=== PATIENT | female | born 1980 | race Caucasian/White ===

== ENCOUNTER 2024-02-15 17:31 | Day surgery (SDC) | payer OTHER, SELFPAY ==
[2024-02-15] VITALS (13 sets, daily range): BP systolic 142–188; BP diastolic 84–128; PULSE 62–103; RESP 16–22; TEMP 36.6; O2SAT 80–100; BMI 30.7
--- NOTE | 2024-02-15 18:21 | CRLHL7_ITS ---
For Patients: As a result of the Cures Act, medical imaging exams and procedure reports are released immediately into your electronic medical record. You may view this report before your referring provider. If you have questions, please contact your health care provider. INDICATION: Right upper quadrant pain. COMPARISON: None. TECHNIQUE: Real time barton scale imaging and color Doppler analysis was performed of the right upper quadrant. FINDINGS: Liver: The liver is normal in size measuring 16.5 cm in length. Normal echogenicity. No focal liver lesions identified. Gallbladder: The gallbladder is distended with a large 5.3 cm shadowing stone in the neck. The remainder of the gallbladder is filled with sludge. Mild wall thickening. No significant pericholecystic fluid. Positive sonographic Sahu sign. Bile ducts: The common bile duct measures 6 mm in diameter. Pancreas: Normal where seen. Right kidney: The right kidney measures 13.4 cm in length. No hydronephrosis, calculus, or mass. Vascular: Normal caliber proximal abdominal aorta. IMPRESSION: 1. Hydropic gallbladder filled with sludge and a large stone in the gallbladder neck. Mild gallbladder wall thickening and tenderness over the gallbladder fossa. Findings are suspicious for acute cholecystitis. 2. Common bile duct upper limits of normal. Dictated by Jessica Durbin MD @ 02/15/2024 7:30:38 PM (Electronically Signed)
--- NOTE | 2024-02-15 18:24 | ED_ITS ---
HPI - General Adult General Chief complaint: Abdominal Pain Stated complaint: Abdominal/chest pain Time Seen by Provider: 02/15/24 18:03 Source: patient Mode of arrival: ambulatory Limitations: no limitations History of Present Illness HPI narrative: 43-year-old female coming in today complaining of abdominal pain going on for about 5 days. Pain is located in the epigastric region but radiates across the entire upper abdomen at times when it gets bad. She does notice that sometimes it gets worse after she eats greasy foods, otherwise it is present despite what she eats. She can take ibuprofen and it does get better but is never gone for more than an hour or 2 at a time. She states that she has vomited on more than 1 occasion when the pain gets bad enough. She denies any fevers or chills. She denies any urinary symptoms, no diarrhea or constipation. She states that the pain sometimes radiates up into her chest. Patient takes no medications, history of . Related Data Home Medications ?Medication ?Instructions ?Recorded ?Confirmed No Known Home Medications 02/15/24 02/15/24 Allergies Allergy/AdvReac Type Severity Reaction Status Date / Time No Known Drug Allergies Allergy Verified 02/15/24 18:11 Review of Systems Status of ROS: Reports: 10 or more systems reviewed and unremarkable except as noted in History and below Exam Narrative: Exam Narrative: Well-nourished well-developed patient, patient is uncomfortable and tearful. Alert and oriented. Answers questions appropriately. Thoughts are goal oriented and rational. No tangential or magical thinking noted. Patient speaks in full sentences without needing to catch her breath. HEENT: Normocephalic atraumatic. Pupils are equally round reactive to light. Extraocular muscles are intact. Conjunctivae are moist without any icterus noted. Moist mucous membranes. Posterior pharynx is normal. Neck is soft without any lymphadenopathy or thyromegaly. No masses are appreciated. Cardiovascular: Heart is regular rate and rhythm S1 and S2 are present without any murmurs. Lungs: Clear to auscultation bilaterally no wheezes rhonchi or rales are appreciated. Patient takes deep breaths without any discomfort. Abdomen: Soft and nondistended with normal bowel sounds. Patient has epigastric tenderness and right upper quadrant tenderness, negative Sahu sign. Extremities: Bilateral lower extremities are without edema. Normal DP and PT pulses. Skin: Well perfused without any obvious rashes. Const: Vital Signs, click to edit/add: Vital Signs - 24 hr 02/15/24 18:06 Temperature 97.8 F Pulse Rate [Pulse Oximeter] 76 Respiratory Rate 22 Blood Pressure [Ri ght Upper Arm] 149/88 H Pulse Oximetry 96 Oxygen Delivery Me thod Room Air Course Course ED Course: EKG, read by me, shows sinus arrhythmia with a pulse of 70. CBC is unremarkable. Chemistries are unremarkable. LFTs are unremarkable. Normal troponin. CRP is elevated at 2.9. Lipase is normal. Patient is given IV morphine. Which does help her pain however relief only lasts about an hour and half. This is followed up with oral hydrocodone. L of normal saline is also started and patient is given IV use Zofran as well. Ultrasound shows an extremely large gallstone stuck in the neck of the gallbladder with concerns for cholecystitis. Discussed case with who recommends hospitalization antibiotic treatment surgery in the morning given the current time of the night. IV Zosyn started in the ED. Vital Signs Vital signs: Initial Vital Signs Temperature 97.8 F 02/15/24 18:06 Temperature Source Temporal Artery Scan 02/15/24 18:06 Pulse Rate 76 02/15/24 18:06 Respiratory Rate 22 02/15/24 18:06 Blood Pressure 149/88 H 02/15/24 18:06 Blood Pressure Mean 108 H 02/15/24 18:06 Blood Pressure Position Sitting 02/15/24 18:06 Pulse Oximetry 96 02/15/24 18:06 Oxygen Delivery Method Room Air 02/15/24 18:06 Vital Signs Temperature 97.8 F 02/15/24 18:06 Pulse Rate 76 02/15/24 18:06 Respiratory Rate 22 02/15/24 18:06 Blood Pressure 149/88 H 02/15/24 18:06 Pulse Oximetry 96 02/15/24 18:06 Oxygen Delivery Method Room Air 02/15/24 18:06 Temperature 97.8 F 02/15/24 18:06 Pulse Rate 76 02/15/24 18:06 Respiratory Rate 22 02/15/24 18:06 Blood Pressure 149/88 H 02/15/24 18:06 Pulse Oximetry 96 02/15/24 18:06 Oxygen Delivery Method Room Air 02/15/24 18:06 Medications Administered Medications: Generic Name Dose Route Start Last Admin Trade Name Ashish PRN Reason Stop Dose Admin Hydrocodone Bitart/Acetaminophen 2 tab 02/15/24 19:50 02/15/24 20:06 Hydrocodone-Acetamin 5-325 Mg 1 Tab PO 02/15/24 19:51 2 tab ONCE ONE Administration Discontinued Medications Generic Name Dose Route Start Last Admin Trade Name Ashish PRN Reason Stop Dose Admin Sodium Chloride 1,000 mls @ 1,000 mls/hr 02/15/24 18:30 02/15/24 19:20 0.9 % Sodium Chloride 1000 Ml IV 02/15/24 19:29 1,000 mls/hr .Q1H LASHA Administration Morphine Sulfate 2 mg 02/15/24 18:21 02/15/24 18:54 Morphine 2 Mg/Ml Inj IVP 02/15/24 18:22 2 mg ONCE ONE Administration Ondansetron HCl 4 mg 02/15/24 18:21 02/15/24 18:54 Ondansetron 2 Mg/Ml Inj IVP 02/15/24 18:22 4 mg ONCE ONE Administration Medical Decision Making MDM Narrative Medical decision making narrative: 43-year-old female with a large gallstone and probable cholecystitis. Plan per above. Lab Data Lab results reviewed: Yes I reviewed the patient's lab results Labs: Lab Results 02/15/24 Range/Units 18:45 WBC 8.84 (4.50-11.00) K/uL RBC 5.51 H (4.00-5.20) m/uL Hgb 15.6 (12.0-16.0) gm/dL Hct 45.1 (33.0-51.0) % MCV 82 (80-100) fL MCH 28 (26-34) pg MCHC 35 (32-36) gm/dL RDW Coeff of Lilly 12.0 (11.5-15.5) % Plt Count 269 (140-440) K/uL Neut % (Auto) 74.0 H (42.0-72.0) % Lymph % (Auto) 16.4 L (20-44) % [place] % (Auto) 8.7 (0.0-11.0) % Eos % (Auto) 0.7 (0.0-7.0) % Baso % (Auto) 0.1 (0.0-3.0) % Neut # (Auto) 6.50 (1.7-7.0) K/uL Lymph # (Auto) 1.40 (0.90-2.90) K/uL [place] # (Auto) 0.80 (0.00-0.90) K/UL Eos # (Auto) 0.06 (0.00-0.50) K/uL Baso # (Auto) 0.01 (0.00-0.30) K/uL Abs Immat Gran (auto) 0.01 (0.00-0.30) K/uL Imm/Tot Granulo (auto) 0.1 % ESR 13 (2-20) mm/hr Sodium 139 (135-149) mmol/L Potassium 3.9 (3.6-5.1) mmol/L Chloride 108 (96-114) mmol/L Carbon Dioxide 24 (20-32) mmol/L Anion Gap 7 (7-15) mEq/L BUN 11 (5-24) mg/dL Creatinine 0.6 (0.5-1.5) mg/dL Estimated Creat Clear 112.01 Estimated GFR 113 ml/min Glucose 118 H (60-115) mg/dL Lactate 1.2 (0.5-1.9) mmol/L Calcium 10.0 (8.4-10.6) mg/dL Total Bilirubin 1.2 (0.1-1.5) mg/dL Direct Bilirubin 0.3 (0.0-0.5) mg/dL AST 18 (12-35) U/L ALT 13 (4-35) U/L Alkaline Phosphatase 102 (40-150) U/L Troponin I < 0.01 L (0.01-0.04) ng/mL C-Reactive Protein 2.9 H (0.5-1.0) mg/dL Total Protein 7.5 (6.0-8.3) g/dL Albumin 4.5 (3.3-5.0) g/dL Lipase 28 (23-300) U/L Imaging Data US - abdomen: Attestation: I have reviewed the pertinent imaging results. Radiologist's impression: TECHNIQUE: Real time barton scale imaging and color Doppler analysis was performed of the right upper quadrant. FINDINGS: Liver: The liver is normal in size measuring 16.5 cm in length. Normal echogenicity. No focal liver lesions identified. Gallbladder: The gallbladder is distended with a large 5.3 cm shadowing stone in the neck. The remainder of the gallbladder is filled with sludge. Mild wall thickening. No significant pericholecystic fluid. Positive sonographic Sahu sign. Bile ducts: The common bile duct measures 6 mm in diameter. Pancreas: Normal where seen. Right kidney: The right kidney measures 13.4 cm in length. No hydronephrosis, calculus, or mass. Vascular: Normal caliber proximal abdominal aorta. IMPRESSION: 1. Hydropic gallbladder filled with sludge and a large stone in the gallbladder neck. Mild gallbladder wall thickening and tenderness over the gallbladder fossa. Findings are suspicious for acute cholecystitis. 2. Common bile duct upper limits of normal. ECG Data Attestation: I personally reviewed and interpreted this ECG as follows: Discharge Plan Discharge Clinical Impression: Cholelithiasis, Acute cholecystitis Patient Disposition: Admitted As Observation Condition: Stable Prescriptions: No Action No Known Home Medications Follow Up/Referrals: Provider,Not a Local [Primary Care Provider] -
[2024-02-15] MEDS: MORPHINE 2 MG/ML inj IVP (18:54)
[2024-02-15] MEDS: ONDANSETRON 2 MG/ML inj 4 MG IVP ×2 (18:54→23:11)
[2024-02-15 18:55] LABS: Basophils Absolute Auto 0.01 K/uL (0.00-0.30); Basophils Percent Auto 0.1 % (0.0-3.0); Eosinophils Absolute Auto 0.06 K/uL (0.00-0.50); Eosinophils Percent Auto 0.7 % (0.0-7.0); Hematocrit 45.1 % (33.0-51.0); Hemoglobin* 15.6 gm/dL (12.0-16.0); Immature Granulocytes Abs Auto 0.01 K/uL (0.00-0.30); Immature Granulocytes Pct Auto 0.1 %; Lactate* 1.2 mmol/L (0.5-1.9); Lymphocytes Percent Auto 16.4 % (20-44); Mean Corpuscular HGB Conc 35 gm/dL (32-36); Mean Corpuscular Hemoglobin 28 pg (26-34); Mean Corpuscular Volume 82 fL (80-100); Monocytes Percent Auto 8.7 % (0.0-11.0); Platelet Count* 269 K/uL (140-440); Red Blood Count 5.51 m/uL (4.00-5.20); White Blood Count* 8.84 K/uL (4.50-11.00)
[2024-02-15 18:57] LABS: Slide Review Reflex No
[2024-02-15 19:15] LABS: Albumin* 4.5 g/dL (3.3-5.0); Chloride* 108 mmol/L (96-114); Sodium* 139 mmol/L (135-149)
[2024-02-15 19:16] LABS: Potassium* 3.9 mmol/L (3.6-5.1)
[2024-02-15 19:17] LABS: Creatinine* 0.6 mg/dL (0.5-1.5); Est. Creatinine Clearance* 112.01; Estimated Glomerular Filt Rate 113 ml/min
[2024-02-15 19:18] LABS: Alkaline Phosphatase* 102 U/L (40-150); Anion Gap 7 mEq/L (7-15); Aspartate Amino Transferase* 18 U/L (12-35); Bilirubin Direct* 0.3 mg/dL (0.0-0.5); Bilirubin Total* 1.2 mg/dL (0.1-1.5); Blood Urea Nitrogen* 11 mg/dL (5-24); Carbon Dioxide* 24 mmol/L (20-32); Total Protein* 7.5 g/dL (6.0-8.3)
[2024-02-15 19:19] LABS: Alanine Aminotransferase* 13 U/L (4-35); Glucose* 118 mg/dL (60-115); Lipase* 28 U/L (23-300)
[2024-02-15] MEDS: 0.9 % SODIUM CHLORIDE 1000 ml 1,000 ML IV (19:20)
[2024-02-15 19:21] LABS: C Reactive Protein* 2.9 mg/dL (0.5-1.0)
[2024-02-15 19:30] LABS: Troponin I* < 0.01 ng/mL (0.01-0.04)
[2024-02-15 19:49] LABS: Erythrocyte SedimentationRate* 13 mm/hr (2-20)
[2024-02-15] MEDS: HYDROCODONE-ACETAMIN 5-325 MG 1 TAB 2 TAB PO (20:06)
[2024-02-15] MEDS: PIPERACILLIN/TAZOBACTAM 3.375 GM in 0.9 % SODIUM CHLORIDE Mini-bag 100 ML IVPB (20:18)
[2024-02-15] MEDS: HYDROmorphone 0.5 mg/0.5 ml inj 1 MG IVP (20:57)
[2024-02-15] MEDS: SODIUM CHLORIDE 0.9 % (FLUSH) 10 ML SYRINGE 5 ML IVF ×2 (21:58→23:11)
[2024-02-15] MEDS: 0.9 % SODIUM CHLORIDE 500 ML 500 ML IV (21:58)
[2024-02-15] MEDS: 0.9 % SODIUM CHLORIDE 1000 ml 1,000 ML 125 ML IV (21:59)
[2024-02-15] MEDS: KETOROLAC 30 MG/ML inj IVP (22:07)
--- NOTE | 2024-02-15 23:08 | PM.IMHP1 ---
Hospitalist- H&P: HPI History of Present Illness Date Seen: 02/15/24 Chief complaint: Abdominal/chest pain Narrative: Chela Murillo is a 43 year old woman presents to the emergency department today for assessment of abdominal pain that has been worsening slowly over the course of the past 5 days. Pain for the most part is epigastric but at times radiates across the abdomen into her back. Initially it seemed that the pain would get worse when she consumed foods rich in fat but more recently the pain occurs when she eats anything. She has tried acetaminophen to relieve pain without any relief. She has tried ibuprofen for pain relief which helped for a while but more recently has not helped at all. She has taken ibuprofen as much as 8 of the [id number] 200 mg tabs at a time. Has had intermittent nausea and vomiting as well. Has had little to eat or drink over the last 2-3 days. The last day or 2 she has only been able to sip fluids and not able to consume anything solid. Denies fevers, rigors, diaphoresis. Denies dysuria, urgency, frequency, hematuria. Denies diarrhea or constipation. Denies blood loss of any sort. Review of Systems Status of ROS: Reports: 6 or more systems reviewed and unremarkable except as noted in History and below Narrative: Does not consume alcoholic beverages. History of smoking in the past. No longer smokes. Does acknowledge that she vapes periodically. [facility] Surgical History History of section ?Z98.891 - History of uterine scar from previous surgery (ICD-10) Meds Home Medications and Allergies Home Medications ?Medication ?Instructions ?Recorded ?Confirmed ?Type No Known Home Medications 02/15/24 02/15/24 History Home Medication Comments: Acetaminophen and ibuprofen p.r.n. for pain over the last few days Allergies Allergy/AdvReac Type Severity Reaction Status Date / Time No Known Drug Allergies Allergy Verified 02/15/24 18:11 Exam Narrative: Exam Narrative: I 1st examined her in the hospital emergency department. In the emergency department she is diaphoretic and fidgety and unable to get in a comfortable position. Alert and oriented x4. Cooperative and friendly. External auditory canals are clear and tympanic membranes are normal. Midline nasal septum. Dry buccal mucosa. Dentition in fair repair. Conjugate gaze. No icterus. No conjunctival injection. Pupils equally round and reactive to light and accommodation. Neck is supple. Midline trachea. No head neck lymphadenopathy. Lungs are clear to auscultation without wheezing, rhonchi, or rales. Chest wall excursions are full. No CVA tenderness. Heart tones with regular rhythm, normal S1-S2, without murmur, gallop, or rub. Abdomen is distended. Occasional intermittent bowel sounds. Tender to touch. No rebound. Extremities without edema. Capillary refill less than 3 seconds. Moves all 4 extremities. No focal motor neurologic deficits. Cranial nerves 3-12 grossly normal. Independent in transfer, station, and gait. After the patient receives additional analgesics she appears much more comfortable and is no longer diaphoretic. Const: Vital Signs, click to edit/add: Vital Signs - 24 hr 02/15/24 18:06 02/15/24 19:53 02/15/24 20:00 Temperature 97.8 F Pulse Rate 77 103 H Pulse Rate [Pulse Oximeter] 76 Respiratory Rate 22 Blood Pressure Blood Pressure [Ri ght Upper Arm] 149/88 H Pulse Oximetry 96 98 [facility] 02/15/24 20:08 02/15/24 20:16 02/15/24 20:25 Temperature Pulse Rate 83 62 82 Pulse Rate [Pulse Oximeter] Respiratory Rate 16 Blood Pressure 142/128 H 188/115 H Blood Pressure [Ri ght Upper Arm] Pulse Oximetry 98 80 L [facility] 02/15/24 20:26 02/15/24 20:30 02/15/24 20:45 Temperature Pulse Rate 84 89 88 Pulse Rate [Pulse Oximeter] Respiratory Rate 16 Blood Pressure 186/106 H Blood Pressure [Ri ght Upper Arm] Pulse Oximetry 100 100 97 [facility] 02/15/24 21:00 02/15/24 21:02 Temperature Pulse Rate 68 86 Pulse Rate [Pulse Oximeter] Respiratory Rate 16 Blood Pressure 149/93 H Blood Pressure [Ri ght Upper Arm] Pulse Oximetry 100 100 [facility] - H&P: Result Labs Labs: Short CBC 02/15/24 Range/Units 18:45 WBC 8.84 (4.50-11.00) K/uL Hgb 15.6 (12.0-16.0) gm/dL Hct 45.1 (33.0-51.0) % Plt Count 269 (140-440) K/uL BMP 02/15/24 18:45 Sodium 139 Potassium 3.9 Chloride 108 Carbon Dioxide 24 BUN 11 Creatinine 0.6 Glucose 118 H Calcium 10.0 Cardiac Enzymes 02/15/24 Range/Units 18:45 Troponin I < 0.01 L (0.01-0.04) ng/mL Liver Function 02/15/24 Range/Units 18:45 Total Bilirubin 1.2 (0.1-1.5) mg/dL Direct Bilirubin 0.3 (0.0-0.5) mg/dL AST 18 (12-35) U/L ALT 13 (4-35) U/L Alkaline Phosphatase 102 (40-150) U/L Albumin 4.5 (3.3-5.0) g/dL ECG Attestation: I personally reviewed and interpreted this ECG as follows: ECG interpretation date: 02/15/24 Interpretation: Normal sinus rhythm with occasional atrial premature complexes. No evidence of ischemia or infarct. Imaging US - abdomen: Radiologist's impression: 1. Hydropic gallbladder filled with sludge and a large stone in the gallbladder neck. Mild gallbladder wall thickening and tenderness over the gallbladder fossa. Findings are suspicious for acute cholecystitis. 2. Common bile duct upper limits of normal. Assessment and Plan Assessment and plan (1) Acute cholecystitis: Status: Acute (2) Cholelithiasis: Status: Acute Plan - general surgeon, Dr. Dunn, will see the patient in consultation. For now we will initiate IV piperacillin and tazobactam, analgesia and antiemetics, NPO, IV fluids. - reviewed impression and recommendations with patient and she is agreeable. - answered patient's questions to her satisfaction. Total Time Spent Total Time Spent: 60 min
[2024-02-16] VITALS (25 sets, daily range): BP systolic 125–170; BP diastolic 67–106; PULSE 78–119; RESP 16–29; TEMP 36.4–37.5; O2SAT 18–98
[2024-02-16 00:19] LABS: Appearance Urine Clear (Clear); Bilirubin Urine Negative (Negative); Blood Urine 1+ (Negative); Color Urine Yellow (Yellow); Glucose Urine Negative (Negative); Ketones Urine 2+ (Negative); Leukocyte Esterase Urine 1+ (Negative); Nitrite Urine Negative (Negative); Protein Urine 1+ (Negative); Urobilinogen Urine 0.2 (0.2-1.0); pH Urine 5.5 (5.0-8.5)
[2024-02-16 00:25] LABS: Ur HCG Qualitative* Negative (Negative)
[2024-02-16 00:30] LABS: Bacteria Urine Few; RBC Urine 0-2 (0-2); Squamous Epithelial Cell Urine Few (None-Few); WBC Urine 0-2 (0-5)
[2024-02-16] MEDS: HYDROmorphone 0.5 mg/0.5 ml inj 1 MG IVP ×6 (02:01→09:55)
[2024-02-16] MEDS: PIPERACILLIN/TAZOBACTAM 3.375 GM in 0.9 % SODIUM CHLORIDE Mini-bag 100 ML IVPB ×2 (02:02→07:30)
[2024-02-16] MEDS: ONDANSETRON 2 MG/ML inj 4 MG IVP ×2 (03:38→07:42)
[2024-02-16] MEDS: KETOROLAC 30 MG/ML inj IVP (03:57)
--- NOTE | 2024-02-16 06:45 | PC.NURSE ---
Pt alert and oriented x3. Afebrile. Pt reports 2-9/10 epigastric pain that radiates to back, pain managed with PRN medications. Pt reports intermittent nausea and pt had several episodes of emesis 3-10ml after Dilaudid administration, PRN Zofran given with some relief. Pt is up Ind in room, voiding and has been tolerating an NPO diet since 210902/15/24. ?
[2024-02-16 06:59] LABS: Basophils Absolute Auto 0.02 K/uL (0.00-0.30); Basophils Percent Auto 0.3 % (0.0-3.0); Eosinophils Absolute Auto 0.04 K/uL (0.00-0.50); Eosinophils Percent Auto 0.5 % (0.0-7.0); Hematocrit 40.1 % (33.0-51.0); Hemoglobin* 13.5 gm/dL (12.0-16.0); Immature Granulocytes Abs Auto 0.02 K/uL (0.00-0.30); Immature Granulocytes Pct Auto 0.3 %; Lymphocytes Percent Auto 12.5 % (20-44); Mean Corpuscular HGB Conc 34 gm/dL (32-36); Mean Corpuscular Hemoglobin 29 pg (26-34); Mean Corpuscular Volume 85 fL (80-100); Monocytes Percent Auto 6.6 % (0.0-11.0); Neutrophils Percent Auto 79.8 % (42.0-72.0); Platelet Count* 233 K/uL (140-440); RDW Coefficient of Variation % 12.3 % (11.5-15.5); Red Blood Count 4.74 m/uL (4.00-5.20); White Blood Count* 7.89 K/uL (4.50-11.00)
[2024-02-16 07:04] LABS: Slide Review Reflex No
[2024-02-16 07:16] LABS: Albumin* 3.8 g/dL (3.3-5.0); Chloride* 112 mmol/L (96-114); Sodium* 142 mmol/L (135-149)
[2024-02-16 07:17] LABS: Potassium* 4.1 mmol/L (3.6-5.1)
[2024-02-16 07:18] LABS: Creatinine* 0.6 mg/dL (0.5-1.5); Est. Creatinine Clearance* 112.01; Estimated Glomerular Filt Rate 113 ml/min
[2024-02-16 07:19] LABS: Alanine Aminotransferase* 73 U/L (4-35); Alkaline Phosphatase* 103 U/L (40-150); Anion Gap 6 mEq/L (7-15); Aspartate Amino Transferase* 63 U/L (12-35); Bilirubin Direct* 0.3 mg/dL (0.0-0.5); Bilirubin Total* 0.9 mg/dL (0.1-1.5); Blood Urea Nitrogen* 11 mg/dL (5-24); Carbon Dioxide* 24 mmol/L (20-32); Glucose* 113 mg/dL (60-115); Lipase* 25 U/L (23-300); Total Protein* 6.4 g/dL (6.0-8.3)
[2024-02-16 07:20] LABS: Calcium* 9.1 mg/dL (8.4-10.6)
[2024-02-16 07:22] LABS: C Reactive Protein* 4.6 mg/dL (0.5-1.0)
[2024-02-16] MEDS: 0.9 % SODIUM CHLORIDE 1000 ml 1,000 ML 125 ML IV (07:29)
[2024-02-16] MEDS: SODIUM CHLORIDE 0.9 % (FLUSH) 10 ML SYRINGE 5 ML IVF ×3 (07:42→09:56)
--- NOTE | 2024-02-16 09:30 | P.GSCN_ITS ---
History of Present Illness Consult details Date Seen: 02/16/24 Consult date: 02/16/24 Narrative: The patient is a 43-year-old female who presented to the emergency department yesterday with severe abdominal pain, nausea and vomiting. She states that 6 days prior to admission she developed abdominal pain in the morning. She initially thought it was heartburn. She tried Tums and pickle juice to help alleviate this but it did not go away. She states that she had had symptoms similar to this before and it had lasted hours to a day but this time it did not go away. Over the course of the week in moved her stomach and her back. It became worse and worse. She tried a heating pad and was taking ibuprofen regularly. This did not help the pain. She states throughout this time she was not really having many movements. She had a poor appetite as well. Yesterday the pain became much worse in the mid afternoon. She began taking more ibuprofen which did not help. She states that she ?gave in and came into the ER. She had not come in previously because she does not have health insurance. She states that she has not been able to eat in the last 2 and half days. She tried water, but apple juice made her symptoms worse. Yesterday morning she did have diarrhea as well. She has not had fevers, however she is having persistent pain and nausea. [facility] Surgical History History of section ?Z98.891 - History of uterine scar from previous surgery (ICD-10) Meds Home Medications and Allergies Home Medications ?Medication ?Instructions ?Recorded ?Confirmed ?Type No Known Home Medications 02/15/24 02/15/24 History Allergies Allergy/AdvReac Type Severity Reaction Status Date / Time No Known Drug Allergies Allergy Verified 02/15/24 18:11 Exam Narrative: Exam Narrative: General appearance: Alert, cooperative, patient appears mildly uncomfortable Eyes: PERRLA, eye lids clear, and sclera white HENT Head: Normocephalic Ears: External ears normal Pulmonary: Breathing nonlabored on room air Cardiovascular Heart: Regular rate Extremities: warm and well perfused Gastrointestinal Abdominal: No upper abdominal scars. Tender in the upper abdomen Musculoskeletal: Extremities: Upper: Both upper extremities have normal joint range of motion and intact strength. Lower: Both lower extremities have normal joint range of motion and intact strength. Skin: Normal skin color, texture, and turgor. Neurologic: No focal deficits Psychiatric: Alert, oriented, cooperative, normal affect. Const: Vital Signs, click to edit/add: Vital Signs - 24 hr 02/15/24 18:06 02/15/24 19:53 02/15/24 20:00 Temperature 97.8 F Pulse Rate 77 103 H Pulse Rate [Pulse Oximeter] 76 Respiratory Rate 22 Blood Pressure Blood Pressure [Ri ght Arm] Blood Pressure [Ri ght Upper Arm] 149/88 H Pulse Oximetry 96 98 98 Oxygen Delivery Me thod Room Air 02/15/24 20:08 02/15/24 20:16 02/15/24 20:25 Temperature Pulse Rate 83 62 82 Pulse Rate [Pulse Oximeter] Respiratory Rate 16 Blood Pressure 142/128 H 188/115 H Blood Pressure [Ri ght Arm] Blood Pressure [Ri ght Upper Arm] Pulse Oximetry 98 80 L 100 Oxygen Delivery Me thod 02/15/24 20:26 02/15/24 20:30 02/15/24 20:45 Temperature Pulse Rate 84 89 88 Pulse Rate [Pulse Oximeter] Respiratory Rate 16 Blood Pressure 186/106 H Blood Pressure [Ri ght Arm] Blood Pressure [Ri ght Upper Arm] Pulse Oximetry 100 100 97 Oxygen Delivery Me thod 02/15/24 21:00 02/15/24 21:02 02/15/24 21:08 Temperature Pulse Rate 68 86 Pulse Rate [Pulse Oximeter] Respiratory Rate 16 20 Blood Pressure 149/93 H Blood Pressure [Ri ght Arm] Blood Pressure [Ri ght Upper Arm] Pulse Oximetry 100 100 99 Oxygen Delivery Me thod Room Air 02/15/24 21:08 02/15/24 23:14 02/15/24 23:14 Temperature 97.8 F 97.8 F Pulse Rate Pulse Rate [Pulse Oximeter] 80 80 Respiratory Rate 20 16 16 Blood Pressure Blood Pressure [Ri ght Arm] 142/91 H 148/84 H Blood Pressure [Ri ght Upper Arm] Pulse Oximetry 99 96 96 Oxygen Delivery Me thod Room Air Room Air Room Air 02/16/24 02:08 02/16/24 07:00 02/16/24 07:00 Temperature 98.5 F 98.7 F Pulse Rate Pulse Rate [Pulse Oximeter] 93 87 Respiratory Rate 16 18 Blood Pressure Blood Pressure [Ri ght Arm] 157/87 H 145/92 H Blood Pressure [Ri ght Upper Arm] Pulse Oximetry 98 98 98 Oxygen Delivery Me thod Room Air Room Air Room Air Results Labs Labs: Abnormal lab results 02/15/24 02/15/24 02/16/24 Range/Units 00:16 18:45 06:14 RBC 5.51 H (4.00-5.20) m/uL Neut % (Auto) 74.0 H 79.8 H (42.0-72.0) % Lymph % (Auto) 16.4 L 12.5 L (20-44) % Anion Gap 6 L (7-15) mEq/L Glucose 118 H (60-115) mg/dL AST 63 H (12-35) U/L ALT 73 H (4-35) U/L Troponin I < 0.01 L (0.01-0.04) ng/mL C-Reactive Protein 2.9 H 4.6 H (0.5-1.0) mg/dL Urine Protein 1+ A (Negative) Urine Ketones 2+ A (Negative) Urine Blood 1+ A (Negative) Ur Leukocyte Esterase 1+ A (Negative) Urine Bacteria Few A (None) Diabetes panel 02/15/24 02/16/24 Range/Units 18:45 06:14 Sodium 139 142 (135-149) mmol/L Potassium 3.9 4.1 (3.6-5.1) mmol/L Chloride 108 112 (96-114) mmol/L Carbon Dioxide 24 24 (20-32) mmol/L BUN 11 11 (5-24) mg/dL Creatinine 0.6 0.6 (0.5-1.5) mg/dL Glucose 118 H 113 (60-115) mg/dL Calcium 10.0 9.1 (8.4-10.6) mg/dL AST 18 63 H (12-35) U/L ALT 13 73 H (4-35) U/L Alkaline Phosphatase 102 103 (40-150) U/L Total Protein 7.5 6.4 (6.0-8.3) g/dL Albumin 4.5 3.8 (3.3-5.0) g/dL Calcium panel 02/15/24 02/16/24 Range/Units 18:45 06:14 Calcium 10.0 9.1 (8.4-10.6) mg/dL Albumin 4.5 3.8 (3.3-5.0) g/dL Pituitary panel 02/15/24 02/16/24 Range/Units 18:45 06:14 Sodium 139 142 (135-149) mmol/L Potassium 3.9 4.1 (3.6-5.1) mmol/L Chloride 108 112 (96-114) mmol/L Carbon Dioxide 24 24 (20-32) mmol/L BUN 11 11 (5-24) mg/dL Creatinine 0.6 0.6 (0.5-1.5) mg/dL Glucose 118 H 113 (60-115) mg/dL Calcium 10.0 9.1 (8.4-10.6) mg/dL Adrenal panel 02/15/24 02/16/24 Range/Units 18:45 06:14 Sodium 139 142 (135-149) mmol/L Potassium 3.9 4.1 (3.6-5.1) mmol/L Chloride 108 112 (96-114) mmol/L Carbon Dioxide 24 24 (20-32) mmol/L BUN 11 11 (5-24) mg/dL Creatinine 0.6 0.6 (0.5-1.5) mg/dL Glucose 118 H 113 (60-115) mg/dL Calcium 10.0 9.1 (8.4-10.6) mg/dL Total Bilirubin 1.2 0.9 (0.1-1.5) mg/dL AST 18 63 H (12-35) U/L ALT 13 73 H (4-35) U/L Alkaline Phosphatase 102 103 (40-150) U/L Total Protein 7.5 6.4 (6.0-8.3) g/dL Albumin 4.5 3.8 (3.3-5.0) g/dL All other labs normal. Imaging Abdominal ultrasound report/results: report reviewed and image reviewed Additional studies: IMPRESSION: 1. Hydropic gallbladder filled with sludge and a large stone in the gallbladder neck. Mild gallbladder wall thickening and tenderness over the gallbladder fossa. Findings are suspicious for acute cholecystitis. 2. Common bile duct upper limits of normal. Dictated by Jessica Durbin MD @ 02/15/2024 7:30:38 PM Progress Note:A&P Assessment and plan (1) Acute cholecystitis: Status: Acute (2) Cholelithiasis: Status: Acute Plan The patient is a 43-year-old female who has acute cholecystitis. I explained that the treatment for this is laparoscopic cholecystectomy. We discussed the procedure as well as risks and benefits of surgery which include bleeding, infection, bile leak, conversion to open or injury to other structures, specifically the common bile duct. We also discussed recovery. Common bile duct is at the upper limits of normal of 6 mm. AST and ALT are very mildly elevated, but bilirubin remains normal as well as alkaline phosphatase, therefore I do not think cholangiogram is necessary at this time. She signed informed consent and we will plan on surgery urgently today.
[2024-02-16] MEDS: CEFAZOLIN 2 GM INJ IVP (10:48)
--- NOTE | 2024-02-16 11:03 | P.ANES_ITS ---
Anesthesia Charges Start Date/Time Anesthesia Start Date: 02/16/24 Anesthesia Start Time: 10:45 Stop Date/Time Anesthesia Stop Date: 02/16/24 Anesthesia Stop Time: 13:04 Summary Emergency: [employer]
--- NOTE | 2024-02-16 11:05 | W.ANESCHARGE ---
Anesthesia Charges Start Date/Time Anesthesia Start Date: 02/16/24 Anesthesia Start Time: 10:45 Stop Date/Time Anesthesia Stop Date: 02/16/24 Anesthesia Stop Time: 13:04 Summary Emergency: MDA
[2024-02-16] MEDS: LACTATED RINGERS 1000 ML 1,000 ML 100 ML IV (11:38)
[2024-02-16] MEDS: BUPIVACAINE 0.25% 30 ML INJECTION (12:30)
--- NOTE | 2024-02-16 12:53 | PM.GSPRC ---
Operative Note Date of procedure: 02/16/24 Pre-op diagnosis: Acute cholecystitis Post-op diagnosis: Same Type of Procedure: Laparoscopic cholecystectomy Indications: The patient is a 43-year-old female who presented to the emergency department with abdominal pain which have been going on for several days. Workup revealed acute cholecystitis. I recommended cholecystectomy and she agreed to proceed. Procedure Description: After discussing the risks and benefits of the procedure, the patient signed informed consent.? The operative site was marked and the patient was brought to the operating room and placed on the operating table in supine position.? Care was taken to pad the patient's pressure points.?? The patient was then intubated by anesthesia.?? The operative site was then prepped and draped in the usual sterile fashion.? A time-out was then performed. Entrance to the abdomen was gained via a 5 mm Visiport in the left upper quadrant. The abdomen was insufflated and briefly surveyed for signs of injury. There was none. A 10 mm umbilical port was placed as well as 2 working ports along the right costal margin, all under direct vision. The patient was then placed in reverse Trendelenburg position with the right side up. The gallbladder was markedly distended. There were omental adhesions noted. The omental adhesions were partially taken down using a combination of cautery and blunt dissection. Once this was done, the gallbladder was partially decompressed using an aspiration needle. Thick bile returned. There was no purulence. The gallbladder fundus was grasped and retracted cephalad. I continued to carefully dissect the omentum off of the gallbladder. The duodenum was adherent to the inferior aspect of the gallbladder. This was carefully taken down with a combination of cautery to divide wispy adhesions and blunt dissection. I then incised the peritoneal layer over the gallbladder and began identifying the cystic duct and artery. An arterial structure was noted on the lateral aspect of the gallbladder. This was going into the gallbladder. The tissue was very inflamed and friable. The gallbladder was difficult to grasp. There was a large stone impacted in the gallbladder neck. I was able to push this back into the gallbladder itself which helped better facilitate exposure and dissection. Once this was done, I continued my dissection medially and was able to dissect behind what appeared to be a duct like structure. A small bleeding vessel along the peritoneal edge was clipped. This was not the cystic artery. I was able to obtain the critical view by dissecting the gallbladder off the cystic plate and there were no other structures visualized entering the gallbladder. The small vessel posterior to the cystic duct did appear to be the cystic artery. This was clipped with 2 clips proximal 1 clip distal and divided. The cystic duct was then clipped with 2 clips distal and 1 clip proximal and divided. The gallbladder was then taken off of the liver bed and removed from the abdomen using an Endo-Catch bag. The gallbladder was so large that the fascial incision needed to be extended to extract it. There was bile spillage into the incision. The fascia was closed partially with interrupted 0 Vicryl [id number] sutures and the port was replaced. The gallbladder bed was surveyed for hemostasis which appeared adequate at this time. Because of the amount of inflammation during the surgery causing diffuse oozing (though now hemostatic), I did place Surgicel in the gallbladder bed. The ports were then removed and the abdomen desufflated. I continued my closure of umbilical port fascia with interrupted Vicryl sutures. The umbilical incision was irrigated with saline given the bile spillage. Local anesthetic was injected into the fascia and skin around the umbilical incision. The umbilical port site was closed with 3-0 Vicryl dermal and 4-0 Monocryl running subcuticular suture. The other port sites were also closed with subcuticular suture. Sterile dressings were applied. Instrument sponge and needle counts were correct at the end of the case. The patient was then woken and transferred to the PACU in stable condition. ? The patient tolerated the procedure well. Findings: Acute cholecystitis with a large gallstone impacting the gallbladder neck. Anesthesia: GETA Surgeon: Deann Esposito MD Estimated blood loss (mL): 50 Specimen: Gallbladder Condition: stable Disposition: PACU
[2024-02-16] MEDS: MEPERIDINE 25 MG/ML INJ 12.5 MG IVP (13:23)
--- NOTE | 2024-02-16 13:53 | SUR.PHASEI ---
patient blood pressure high, consulted with anesthesia lindaabhishek hebert crna--stated nothing to be given at this time. patient given demerol for shivering, stated shivering stopped.
--- NOTE | 2024-02-16 18:25 | PC.NURSE ---
Pt is pleasant, alert, and oriented. She is tachycardic (ranging from 90-120s) and Hypertensive (ranging from 125/67-147/71). Otherwise, vitals are stable. Pain pre surgery ranged from 8-10/10, with prn medication this was brought down to 3-4/10. Pt went down to surgery around 10:45, came back around 13:50. Post surgical pain ranges from 2-4/10, no intervention needed at this time. ?She has advanced to a regular diet, tolerating well. Pt was up to the bathroom via stand by assist with gait belt and voided 500 ml.
[2024-02-16] MEDS: HYDROCODONE-ACETAMIN 5-325 MG 1 TAB PO ×2 (19:55→23:19)
[2024-02-16] MEDS: LACTATED RINGERS 1000 ML 1,000 ML 125 ML IV (19:56)
[2024-02-16] MEDS: HYDROmorphone 0.5 mg/0.5 ml inj IVP (20:45)
[2024-02-17] MEDS: PIPERACILLIN/TAZOBACTAM 3.375 GM in 0.9 % SODIUM CHLORIDE Mini-bag 100 ML IVPB ×2 (02:23→08:09)
[2024-02-17 02:30] VITALS: BP 115/72; PULSE 99; RESP 18; TEMP 36.7; O2SAT 95
--- NOTE | 2024-02-17 06:39 | PC.NURSE ---
Shift note: Pt is alert and oriented. Ambulated independently in room. Pain rated level was 8 at 0010 and PRN medication given. Pt confirmed reduction in pain level to 4 the the rest of the night. LAPs sites clean and dry. At 0330, Pt complained of gastric reflex and needs milk for that. Milk given and appeared effective per pt. has been with pt in room throughout the night.
[2024-02-17] MEDS: LACTATED RINGERS 1000 ML 1,000 ML 125 ML IV (06:50)
[2024-02-17 07:00] VITALS: BP 141/84; PULSE 83; RESP 18; TEMP 36.5; O2SAT 96
--- NOTE | 2024-02-17 09:50 | P.DS_ITS ---
DS: Providers Provider Date Seen: 02/17/24 Primary care physician: Not a Local Provider Attending Physician on discharge: Deann Esposito MD DS: Diagnosis Discharge Diagnosis (1) Acute cholecystitis: Status: Acute (2) S/P laparoscopic cholecystectomy: Status: Acute DS: Summary Hospital Course Hospital Course: The patient was admitted to the hospital on 02/15/2024 with acute cholecystitis. She was treated overnight with antibiotics and underwent laparoscopic cholecystectomy on 02/16/2024. She was deemed safe for discharge home on 02/17/2024 as she was tolerating a regular diet and had pain control on oral meds. Of note urine culture from the emergency department did grow Gram- negative rods, however this was under 50,000 colonies and no further antibiotics were deemed necessary. Time Spent with Patient Time attestation: Total time spent providing and/or coordinating discharge services: Exam Narrative: Exam Narrative: General: No acute distress CV: Regular rate Respiratory: Breathing nonlabored on room air Abdomen: Incisions are clean. Small amount of ecchymosis below the umbilical incision. Steri-Strips here are loose. Replaced with a bandage. Const: Vital Signs, click to edit/add: Vital Signs - 24 hr 02/16/24 11:00 02/16/24 12:25 02/16/24 13:00 Temperature 98.2 F 97.6 F Pulse Rate 94 95 83 Pulse Rate [Pulse Oximeter] Respiratory Rate 18 29 H 20 Blood Pressure 153/89 H 156/91 H 160/83 H Pulse Oximetry 90 95 92 Oxygen Delivery Me thod Room Air Room Air Room Air Oxygen Flow Rate 02/16/24 13:05 02/16/24 13:10 02/16/24 13:15 Temperature 98.9 F Pulse Rate 81 81 111 H Pulse Rate [Pulse Oximeter] Respiratory Rate 20 23 23 Blood Pressure 146/88 H 157/100 H 142/106 H Pulse Oximetry 90 90 90 Oxygen Delivery Me thod Room Air Room Air Room Air Oxygen Flow Rate 02/16/24 13:20 02/16/24 13:25 02/16/24 13:30 Temperature 99.2 F 99.2 F Pulse Rate 102 H 109 H 90 Pulse Rate [Pulse Oximeter] Respiratory Rate 23 23 21 Blood Pressure 170/101 H 170/101 H 145/85 H Pulse Oximetry 95 95 96 Oxygen Delivery Me thod Room Air Room Air Room Air Oxygen Flow Rate 02/16/24 13:50 02/16/24 14:00 02/16/24 14:15 Temperature 98.0 F 98.0 F 97.9 F Pulse Rate 97 78 96 Pulse Rate [Pulse Oximeter] Respiratory Rate 16 16 16 Blood Pressure 144/85 H 147/71 H 140/77 H Pulse Oximetry 97 93 95 Oxygen Delivery Me thod Room Air Nasal Cannula Nasal Cannula Oxygen Flow Rate 2 2 02/16/24 14:30 02/16/24 14:37 02/16/24 14:45 Temperature 98.1 F 99.2 F Pulse Rate 81 80 Pulse Rate [Pulse Oximeter] Respiratory Rate 16 16 Blood Pressure 135/73 125/67 Pulse Oximetry 95 95 96 Oxygen Delivery Me thod Nasal Cannula Nasal Cannula Nasal Cannula Oxygen Flow Rate 2 2 2 02/16/24 15:30 02/16/24 16:00 02/16/24 17:00 Temperature 98.2 F 98.1 F 98.6 F Pulse Rate 85 102 H 119 H Pulse Rate [Pulse Oximeter] Respiratory Rate 16 18 18 Blood Pressure 128/67 139/75 141/92 H Pulse Oximetry 97 96 18 L Oxygen Delivery Me thod Nasal Cannula Room Air Room Air Oxygen Flow Rate 2 02/16/24 18:00 02/16/24 18:55 02/16/24 20:00 Temperature 98.5 F 98.3 F 99.5 F Pulse Rate 114 H 108 H 105 H Pulse Rate [Pulse Oximeter] Respiratory Rate 16 18 18 Blood Pressure 131/75 131/82 134/87 Pulse Oximetry 94 95 95 Oxygen Delivery Me thod Room Air Room Air Room Air Oxygen Flow Rate 02/16/24 20:45 02/16/24 20:45 02/16/24 23:00 Temperature 98.1 F Pulse Rate 110 H Pulse Rate [Pulse Oximeter] 105 H Respiratory Rate 18 18 18 Blood Pressure 129/80 Pulse Oximetry 95 95 Oxygen Delivery Me thod Room Air Room Air Oxygen Flow Rate 02/17/24 02:30 02/17/24 07:00 02/17/24 07:00 Temperature 98.1 F 97.7 F Pulse Rate 99 83 Pulse Rate [Pulse Oximeter] Respiratory Rate 18 18 Blood Pressure 115/72 141/84 H Pulse Oximetry 95 96 96 Oxygen Delivery Me thod Room Air Room Air Room Air Oxygen Flow Rate DS: Data Data Completed and Pending Labs on day of discharge: Preliminary micro results at discharge 02/15/24 00:16 Urine Culture - Preliminary Urine,Clean Catch Gram negative nancy Discharge Plan Discharge Disposition: Home, Self-Care Discharging Surgeon: Deann Esposito Follow-Up Appointment: 2 weeks [facility] Prescriptions: New hydrocodone-acetaminophen 5-325 mg Tablet 1 - 2 tab PO Q6H PRN (Reason: Pain) Qty: 20 0RF Activity Level: No strenuous activity Activity Detail: No lifting more than 20 pounds for 3 weeks Discharge Diet: Regular Patient Instructions: General Anesthesia (DC), Laparoscopic Cholecystectomy (DC), Post-Operative Instructions: Laparoscopic Cholecystectomy Additional Instructions: Wound care: Your sutures are under the skin and will dissolve over time. Leave steri strips (white bandages) over incisions until they fall off (or remove after 7 days). OK to shower tomorrow but avoid bathing, soaking or swimming for 2 weeks. Pat the incisions dry. No need to wash or scrub the area. Apply ice to the area as needed for swelling. It is also OK to use a heating pad if this provides more comfort to you. Pain control: You were prescribed a pain medication. This medication contains acetaminophen (Tylenol). If you are taking your prescribed pain pills 4 times daily, do not take additional acetaminophen. As your pain improves, you can try taking acetaminophen instead of the prescribed pain pill. It is ok to take Ibuprofen or Naproxen (per directions on packaging). This medication helps with inflammation and swelling. Take an [id number] stool softener while you are taking prescribed pain medications to help alleviate constipation. I recommend Senna and/or Colace. Take as directed on package. If you have not had a bowel movement in 3 days, try taking Miralax as directed on the package. All of these are available over the counter. Follow-up Follow up with Dr. Esposito in 2-3 weeks Please call if you are experiencing severe pain, nausea, vomiting, difficulty urinating, fever or have not had bowel movement in 4 days after surgery. Forms: Work/School Release Follow-up: Deann Esposito MD [Staff Physician] - Provider,Not a Local [Primary Care Provider] - Discharge Orders: Discharge Order (Routine); Ordered 02/17/24 Ordered By: Deann Esposito
[2024-02-17 10:34] VITALS: BP 127/79; PULSE 83; RESP 16; TEMP 36.6; O2SAT 94
--- NOTE | 2024-02-17 11:04 | PC.NURSE ---
Per surgeon Pt's umbilicus steri strips removed and 2 2x2 gauze pads and large band aid put in place.
--- NOTE | 2024-02-17 11:07 | PC.NURSE ---
Discharged: Pt is pleasant, alert, oriented and vitally stable. Pain is well managed, no medications given on shift. Pt is on regular diet and tolerating well. She is up IND. IV removed; tip intact. Discharging home with spouse. ?
== END 2024-02-17 11:11 | disposition home or self-care (01) ==
LOC: ED 20:17 → MEDSURG 21:08 → SS 02-16 02:07 → MEDSURG 02-16 02:08
PROVIDERS: Internal Medicine; Emergency Provider Family Medicine; Visit Provider Surgery
PROC: 0FT44ZZ Resection of Gallbladder, Percutaneous Endoscopic Approach (ICD-10-PCS; CPT 47562; principal; 2024-02-16 13:00)
DX: R10.13 Epigastric pain (principal); K80.01 Calculus of gallbladder with acute cholecystitis with obstruction
CPT/HCPCS: 47562; 00790; 36415; 76705; 80048; 80053; 80076; 81001; 81025; 82248; 83605; 83690; 84484; 85025; 85651; 86140; 87086; 87186; 88304; 93005; 99140; 99284; 99285; A9270; J0330; J0665; J0690; J1100; J1170; J1885; J2175; J2250; J2270; J2405; J2543; J2704; J2710; J3010; J3490; J7030; J7120